=== PATIENT | male | born 1975 | race Native Hawaiian/Other Pacific Islander ===

== ENCOUNTER 2019-03-17 13:59 | Emergency (ER) | payer OTHER ==
[~2019-03-17] VITALS: Ht 190.5 cm; Wt 154.2 kg
[2019-03-17] MEDS ORDERED: NAPROSYN500 MG PO (14:32)
[2019-03-17 15:35] VITALS: BP 156/84; TEMP 97.8
== END 2019-03-17 15:35 | disposition home or self-care (01) ==
LOC: ED 13:59
DX: M25.561 Pain in right knee (principal); W01.198A Fall on same level from slipping, tripping and stumbling with subsequent striking against other object, initial encounter; Y92.89 Other specified places as the place of occurrence of the external cause
CPT/HCPCS: 99282

== ENCOUNTER 2023-07-13 08:46 | Outpatient (CLI) | payer OTHER ==
[~2023-07-13 08:46] MED LIST: NAPROSYN500 MG PO
== END 2023-07-13 19:12 | disposition home or self-care (01) ==
LOC: RESP 08:46
PROVIDERS: ATTEND Internal Medicine
DX: R93.89 Abnormal findings on diagnostic imaging of other specified body structures (principal); R07.89 Other chest pain; R94.5 Abnormal results of liver function studies; I10 Essential (primary) hypertension; E66.01 Morbid (severe) obesity due to excess calories; G47.33 Obstructive sleep apnea (adult) (pediatric); R53.83 Other fatigue

== ENCOUNTER 2023-07-16 08:23 | Outpatient (CLI) | payer OTHER | END 2023-07-16 21:21 | disposition home or self-care (01) | LOC: NM 08:23 | PROVIDERS: ATTEND Internal Medicine | DX: R42 Dizziness and giddiness (principal); R93.89 Abnormal findings on diagnostic imaging of other specified body structures; R07.89 Other chest pain; R94.5 Abnormal results of liver function studies; I10 Essential (primary) hypertension; E66.01 Morbid (severe) obesity due to excess calories; G47.33 Obstructive sleep apnea (adult) (pediatric); R53.83 Other fatigue | CPT/HCPCS: A9500 ==